=== PATIENT | male | born 1950 | race Caucasian/White ===

== ENCOUNTER 2016-12-13 08:48 | Inpatient (IN) | payer MEDICARE ==
[~2016-12-13] VITALS: Ht 182.9 cm; Wt 142.1 kg
[2016-12-13] MEDS ORDERED: IV NORMAL SALINE 500ML 500 ML IV ONE (09:00)
[2016-12-13 09:30] LABS: BASO # 0.1 x10^3/uL (0.0-0.2); BASO % 1 % (0-3); EOS # 0.2 x10^3/uL (0.0-0.7); EOS % 2 % (0-3); HEMATOCRIT 42.6 % (39.0-53.0); HEMOGLOBIN 14.5 g/dL (13.0-17.5); LYMPH # 1.2 x10^3/uL (1.0-4.8); LYMPH % 11 % (24-48); MEAN CORPUSCULAR HEMOGLOBIN 29 pg (25-35); MEAN CORPUSCULAR HGB CONC 34 g/dL (31-37); MEAN CORPUSCULAR VOLUME 85 fL (79-100); MONO # 0.7 x10^3/uL (0.0-1.1); MONO % 7 % (0-9); NEUT # 8.8 x10^3uL (1.8-7.7); NEUT % 79 % (31-73); PLATELET COUNT 404 x10^3/uL (140-400); RED CELL DISTRIBUTION WIDTH 13.1 % (11.5-14.5); WHITE BLOOD COUNT 11.1 x10^3/uL (4.0-11.0)
[2016-12-13 09:42] LABS: ALBUMIN 3.6 g/dL (3.4-5.0); CREATININE 0.9 mg/dL (0.7-1.3); GFR 84.2; POTASSIUM 3.5 mmol/L (3.5-5.1); TOTAL BILIRUBIN 0.4 mg/dL (0.2-1.0); TOTAL PROTEIN 7.3 g/dL (6.4-8.2)
--- NOTE | 2016-12-13 09:43 | RAD ---
Examination: 2 views of the chest. History: History of cough, fever Comparison: 04/03/2011 Findings: The cardiomediastinal silhouette grossly appears unremarkable. Mild patchy left lung base airspace opacities likely atelectasis or infiltrates. Impression: 1. Patchy left lung base airspace opacities likely atelectasis or pneumonia. Follow-up to resolution.
[2016-12-13 09:44] LABS: INFLUENZA A PATIENT NEGATIVE (NEGATIVE); INFLUENZA B PATIENT NEGATIVE (NEGATIVE)
[2016-12-13] MEDS ORDERED: ONDANSETRON PF 4 MG/2 ML VIAL. IV PRN (10:15)
[2016-12-13] MEDS ORDERED: AZITHROMYCIN 500 MG in IV NORMAL SALINE 250ML 250 ML IV ONE (10:15)
[2016-12-13] MEDS ORDERED: cefTRIAXone SODIUM 1 GM VIAL IV ONE (10:23)
[2016-12-13] MEDS ORDERED: IV NORMAL SALINE 50ML 50 ML ONE (10:23)
[2016-12-13] MEDS ORDERED: IPRATRPIUM/ALBUTEROL 0.5/2.5MG 3 ML NEBU. ONE (10:30)
--- NOTE | 2016-12-13 10:42 | PHYS DOC ---
Past History Past Medical History: Depression, Hypertension Alcohol Use: None Drug Use: None Adult General Chief Complaint Chief Complaint: COUGH HPI HPI Patient is a 66 year old male who presents with cough & body aches. The patient reports 6 day history of symptoms with deep, dry cough, subjective fevers, body aches, nausea. He denies headache, nasal congestion/rhinorrhea, sore throat, chest pain, shortness of breath, abdominal pain, vomiting, diarrhea , dysuria. History of hypertension & he has been treated for pneumonia in the past. Nonsmoker. Doesn't remember the name of his PCP. Review of Systems Review of Systems Constitutional: Reports fever Eyes: Denies change in visual acuity HENT: Denies nasal congestion or sore throat Respiratory: Reports cough, denies shortness of breath Cardiovascular: Denies chest pain or edema GI: Reports nausea. Denies abdominal pain, vomiting, or diarrhea : Denies dysuria or hematuria Musculoskeletal: Denies back pain or joint pain Integument: Denies rash or skin lesions Neurologic: Denies headache, focal weakness or sensory changes Current Medications Current Medications Current Medications Medications (Trade) Dose Ordered Sig/Yeni Start Time Stop Time Status Last Admin Dose Admin Albuterol/ Ipratropium (Duoneb) 3 ml STK-MED ONCE 12/13/16 10:30 12/13/16 10:31 DC Azithromycin 500 mg/Sodium Chloride 250 ml @ 250 mls/hr 1X ONCE 12/13/16 10:15 12/13/16 11:14 Ceftriaxone Sodium 1 gm/ Sodium Chloride 50 ml @ 100 mls/hr 1X ONCE 12/13/16 10:15 12/13/16 10:44 12/13/16 10:28 100 MLS/HR Ceftriaxone Sodium (Rocephin) 1 gm STK-MED ONCE 12/13/16 10:23 12/13/16 10:24 DC Ondansetron HCl (Zofran) 4 mg PRN Q4HRS PRN 12/13/16 10:15 12/14/16 10:14 Sodium Chloride 50 ml @ As Directed STK-MED ONCE 12/13/16 10:23 12/13/16 10:24 DC Allergies Allergies Allergies Coded Allergies Type Severity Reaction Last Updated Verified No Known Drug Allergies 12/13/16 No Physical Exam Physical Exam Constitutional: obese, no acute distress, non-toxic appearance. HENT: Normocephalic, atraumatic, bilateral external ears normal, oropharynx moist, posterior oropharynx no tonsillar enlargement/exudate, nose normal. Eyes: conjunctiva normal, no discharge. Neck: supple, no stridor. no meningismus Cardiovascular: tachycardic 105 regular, no murmurs, no edema. Lungs & Thorax: LCTAB, no wheezing, no respiratory distress. diminished in bases bilaterally. Abdomen: soft, nontender, nondistended. Skin: Warm, dry, no erythema, no rash. Back: No tenderness. Extremities: No tenderness, no edema. no calf tenderness or swelling. Neurologic: Alert and oriented X 3, no focal deficits noted. Psychologic: Affect normal, judgement normal, mood normal. Current Patient Data Vital Signs Vital Signs Date Time Temp Pulse Resp B/P (MAP) Pulse Ox O2 Delivery O2 Flow Rate FiO2 12/13/16 09:15 97.7 111 18 93 Room Air Lab Results Laboratory Tests Test 12/13/16 09:10 12/13/16 09:15 Influenza Type A (Rapid) Negative (NEGATIVE) Influenza Type B (Rapid) Negative (NEGATIVE) White Blood Count 11.1 x10^3/uL (4.0-11.0) H Red Blood Count 5.00 x10^6/uL (4.30-5.70) Hemoglobin 14.5 g/dL (13.0-17.5) Hematocrit 42.6 % (39.0-53.0) Mean Corpuscular Volume 85 fL (79-100) Mean Corpuscular Hemoglobin 29 pg (25-35) Mean Corpuscular Hemoglobin Concent 34 g/dL (31-37) Red Cell Distribution Width 13.1 % (11.5-14.5) Platelet Count 404 x10^3/uL (140-400) H Neutrophils (%) (Auto) 79 % (31-73) H Lymphocytes (%) (Auto) 11 % (24-48) L Monocytes (%) (Auto) 7 % (0-9) Eosinophils (%) (Auto) 2 % (0-3) Basophils (%) (Auto) 1 % (0-3) Neutrophils # (Auto) 8.8 x10^3uL (1.8-7.7) H Lymphocytes # (Auto) 1.2 x10^3/uL (1.0-4.8) Monocytes # (Auto) 0.7 x10^3/uL (0.0-1.1) Eosinophils # (Auto) 0.2 x10^3/uL (0.0-0.7) Basophils # (Auto) 0.1 x10^3/uL (0.0-0.2) Sodium Level 125 mmol/L (136-145) L Potassium Level 3.5 mmol/L (3.5-5.1) Chloride Level 89 mmol/L (98-107) L Carbon Dioxide Level 28 mmol/L (21-32) Anion Gap 8 (6-14) Blood Urea Nitrogen 8 mg/dL (8-26) Creatinine 0.9 mg/dL (0.7-1.3) Estimated GFR (Cockcroft-Gault) 84.2 BUN/Creatinine Ratio 9 (6-20) Glucose Level 148 mg/dL (70-99) H Calcium Level 9.0 mg/dL (8.5-10.1) Total Bilirubin 0.4 mg/dL (0.2-1.0) Aspartate Amino Transferase (AST) 20 U/L (15-37) Alanine Aminotransferase (ALT) 23 U/L (16-63) Alkaline Phosphatase 68 U/L (46-116) Total Protein 7.3 g/dL (6.4-8.2) Albumin 3.6 g/dL (3.4-5.0) Albumin/Globulin Ratio 1.0 (1.0-1.7) EKG EKG [] Radiology/Procedures Radiology/Procedures PROCEDURE: CHEST PA & LATERAL Examination: 2 views of the chest. History: History of cough, fever Comparison: 04/03/2011 Findings: The cardiomediastinal silhouette grossly appears unremarkable. Mild patchy left lung base airspace opacities likely atelectasis or infiltrates. Impression: 1. Patchy left lung base airspace opacities likely atelectasis or pneumonia. Follow-up to resolution. DICTATED AND SIGNED BY: JOSEMANUEL SINGH MD DATE: 12/13/16 0940[] Course & Med Decision Making Course & Med Decision Making Pertinent Labs and Imaging studies reviewed. (See chart for details) The patient presents with cough & body aches. Afebrile here, mildly tachycardic upon arrival with normal blood pressure. Lungs clear, CXR shows infiltrate consistent with pneumonia in light of clinical condition. At rest, oxygen saturation dropping to 88-89% on room air, placed on 2L by nasal cannula. Heart rate improved to 80s after 500 mL fluid bolus. WBC mildly elevated at 11, hyponatremia with sodium of 125. Recommended admission to the hospital, & the patient agrees with plan of care. Discussed with Dr. Finney who agrees to accept for admission to inpatient status. Will give rocephin & azithromycin for community acquired pneumonia, patient does not meet criteria for SIRS/sepsis. He is admitted in stable condition. I have assessed this patient clinically and believe that their condition requires an admission to the hospital. After consulting the admitting physician about this case, they have asked that I admit this patient to their service as an inpatient based on the clinical presentation and my impression. [] Dragon Disclaimer Dragon Disclaimer This chart was dictated in whole or in part using Voice Recognition software in a busy, high-work load, and often noisy Emergency Department environment. It may contain unintended and wholly unrecognized errors or omissions. Departure Departure: Impression: Primary Impression: Community acquired bacterial pneumonia Additional Impressions: Hypoxia Hyponatremia Disposition: ADMITTED INPATIENT Admitting Physician: Susan Finney Condition: STABLE Referrals: PCP,UNKNOWN (PCP) Problem Qualifiers ARIES RAMOS MD Dec 13, 2016 10:42
[2016-12-13] MEDS: IPRATRPIUM/ALBUTEROL 0.5/2.5MG 3 ML NEBU. NEB SCH ×3 (10:46→21:29)
[2016-12-13] MEDS ORDERED: ACETAMINOPHEN 325 MG TABLET PO PRN (11:00)
[2016-12-13] MEDS ORDERED: HYDROcodone/CHLORPHEN POLIS 5 ML SUS.ER.12H PO PRN (11:00)
[2016-12-13 11:09] VITALS: BP 141/95
[2016-12-13] MEDS ORDERED: AZITHROMYCIN 500 MG in IV NORMAL SALINE 250ML 250 ML IV SCH (12:00)
[2016-12-13] MEDS ORDERED: CARV3.122 PO (13:50)
[2016-12-13] MEDS ORDERED: LOSA1TAB22 PO (13:50)
[2016-12-13] MEDS ORDERED: TRIF5TAB PO (13:50)
[2016-12-13] MEDS ORDERED: SERT100T8 PO (13:50)
[2016-12-13] MEDS ORDERED: AMLO10TA2 PO (13:50)
[2016-12-13] MEDS ORDERED: LOSA50TA6 PO (13:50)
--- NOTE | 2016-12-13 13:51 | HP ---
ADMIT DATE: 12/13/2016 REASON FOR ADMISSION: Pneumonia. HISTORY OF PRESENT ILLNESS: This is a 66-year-old gentleman who has been sick since the with a sore throat, fever, hacking cough, aches and pains, and nausea. He tried to cough it out and then this got progressively worse. PAST MEDICAL HISTORY: He has hypertension and depression. He was hospitalized 2 years ago for vertigo. FAMILY HISTORY: Mother at 93, father at 80 and both had depression. ALLERGIES: None. MEDICATIONS: His home meds are not in yet, but he did say he takes Stelazine and Zoloft. PAST SURGICAL HISTORY: None. REVIEW OF SYSTEMS: Occasionally nauseated. He does snore. He no longer drives because he cannot calculate the distance between cars. 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 He is a nonsmoker, has a glass of wine now and then. OBJECTIVE: VITAL SIGNS: Blood pressure 141/95, pulse 102, temperature 98, O2 sat is 95% on 3 liters. Height 72 inches, weight 317 pounds, BMI is 43. GENERAL: A 66-year-old in no acute distress. HEENT: Hearing is normal. His eyes are clear. Nose is patent. Throat, large tongue relative to the posterior pharynx, no injection or exudate. NECK: Short and supple. LUNGS: Coarse breath sounds, but no wheezes. CARDIOVASCULAR: Regular rhythm and rate. ABDOMEN: Soft and nontender. EXTREMITIES: Without edema. LABORATORY DATA: CBC: His white blood cell count is 11.1, slight shift. Chemistry: Sodium is 125, chloride 89, glucose is 148. His influenza is negative. Chest x-ray: Left lung base infiltrate. ASSESSMENT: 1. Community-acquired pneumonia 2. Hyponatremia. 3. Sleep apnea suspect. 4. Morbid obesity. 5. Systemic inflammatory response syndrome. PLAN: IV antibiotics, IV fluids. Recommend sleep study as an outpatient. Monitor oxygen. JYARO GOLD DO DR: DESTINY/jermaine JOB#: [id number] / [id number]
[2016-12-13] MEDS: IV NORMAL SALINE 1,000ML 1,000 ML IV SCH ×2 (13:59→20:07)
[2016-12-13 14:07] LABS: BACTERIA,URINE 0 /HPF (0-FEW); BILIRUBIN,URINE NEG (NEG); CLARITY,URINE CLEAR; COLOR,URINE YELLOW; GLUCOSE,URINE NEG (NEG); NITRITE,URINE NEG (NEG); RBC,URINE 0 /HPF (0-2); UROBILINOGEN,URINE 0.2 mg/dL (0.2 mg/dL); WBC,URINE 0 /HPF (0-4)
[2016-12-13 14:30] VITALS: BP 118/82
[2016-12-13 19:25] VITALS: BP 131/79
[2016-12-13] MEDS: CARVEDILOL 3.125 MG TABLET PO SCH (20:03)
[2016-12-13] MEDS: TRIFLUOPERAZINE 1 MG PO SCH (20:03)
[2016-12-13] MEDS: ENOXAPARIN 40 MG/0.4 ML DISP.SYRIN. SQ SCH (20:04)
[2016-12-13 23:14] VITALS: BP 147/68
[2016-12-14 05:19] VITALS: BP 150/92
[2016-12-14] MEDS: IV NORMAL SALINE 1,000ML 1,000 ML IV SCH (05:24)
[2016-12-14 07:04] LABS: BASO % 0 % (0-3); EOS # 0.2 x10^3/uL (0.0-0.7); EOS % 2 % (0-3); HEMATOCRIT 41.3 % (39.0-53.0); LYMPH # 1.5 x10^3/uL (1.0-4.8); LYMPH % 19 % (24-48); MEAN CORPUSCULAR HEMOGLOBIN 29 pg (25-35); MEAN CORPUSCULAR HGB CONC 34 g/dL (31-37); MEAN CORPUSCULAR VOLUME 86 fL (79-100); MONO # 0.7 x10^3/uL (0.0-1.1); MONO % 9 % (0-9); NEUT # 5.4 x10^3uL (1.8-7.7); NEUT % 69 % (31-73); PLATELET COUNT 395 x10^3/uL (140-400); RED CELL DISTRIBUTION WIDTH 13.2 % (11.5-14.5); WHITE BLOOD COUNT 7.9 x10^3/uL (4.0-11.0)
[2016-12-14 07:17] LABS: CALCIUM 8.8 mg/dL (8.5-10.1); CREATININE 0.8 mg/dL (0.7-1.3); GFR 96.4; POTASSIUM 3.9 mmol/L (3.5-5.1)
[2016-12-14] MEDS: IPRATRPIUM/ALBUTEROL 0.5/2.5MG 3 ML NEBU. NEB SCH (08:00)
[2016-12-14] MEDS: CARVEDILOL 3.125 MG TABLET PO SCH ×2 (08:40→20:55)
[2016-12-14] MEDS: AZITHROMYCIN 250 MG TABLET. PO SCH (08:40)
[2016-12-14] MEDS: SERTRALINE 100 MG TABLET. PO SCH (08:40)
[2016-12-14] MEDS: amLODIPine BESYLATE 10 MG TABLET PO SCH (08:41)
[2016-12-14] MEDS: LOSARTAN 50 MG TABLET. PO SCH (08:41)
[2016-12-14] MEDS: TRIFLUOPERAZINE 1 MG PO SCH ×2 (08:43→20:56)
[2016-12-14] MEDS ORDERED: PNEUMOC CONJ VACC 23-VALENT 0.5 ML VIAL. VAX IM ONE (09:00)
[2016-12-14] MEDS ORDERED: FLU VACC QS2017-18 (36MOS+)/PF 0.5 ML SYRINGE. VAX IM ONE (09:00)
[2016-12-14 10:35] VITALS: BP 149/80
[2016-12-14 15:23] VITALS: BP 161/77
[2016-12-14] MEDS ORDERED: IPRATRPIUM/ALBUTEROL 0.5/2.5MG 3 ML NEBU. NEB PRN (19:15)
[2016-12-14 19:26] VITALS: BP 133/87
[2016-12-14] MEDS: LACTOBACILLUS ACIDOPH & BULGAR 1 TABLET. PO SCH (20:55)
[2016-12-14] MEDS: ENOXAPARIN 40 MG/0.4 ML DISP.SYRIN. SQ SCH (20:55)
[2016-12-14 22:31] VITALS: BP 166/88
--- NOTE | 2016-12-14 23:03 | PN ---
DATE: 12/14/2016 CURRENT PROBLEMS: 1. Acute hypoxic respiratory failure 2. Pneumonia. 3. Morbid obesity. 4. Sleep apnea suspect. 5. SIRS. 6. Depression. 7. Hypertension. NARRATIVE: A 66-year-old gentleman who has been sick at least a week and was found to have pneumonia and hypoxia and was admitted. He is still requiring oxygen, but is feeling a lot better. He still required oxygen; yesterday evening, it was 91% on 3 liters. OBJECTIVE: VITAL SIGNS: 150/92, pulse 95, temperature 97.3. GENERAL: A 66-year-old, in no acute distress. HEENT: His tongue was moist. NECK: Supple. LUNGS: Still a few coarse breath sounds, but essentially clear. CARDIOVASCULAR: Regular rhythm and rate with a 2/6 systolic murmur. ABDOMEN: Soft and nontender. EXTREMITIES: Without edema. PLAN: Because of the murmur, we get an echocardiogram tomorrow. A 6-minute walk. Continue with IV antibiotics and probably could be discharged tomorrow. He monitor his blood pressure. He may benefit as his blood pressures were fine yesterday. JAYRO GOLD DO DR: DESTINY/jermaine JOB#: [id number] / [id number]
[2016-12-15 05:54] VITALS: BP 149/96
[2016-12-15 06:28] LABS: BASO % 0 % (0-3); EOS # 0.2 x10^3/uL (0.0-0.7); EOS % 1 % (0-3); HEMATOCRIT 43.4 % (39.0-53.0); HEMOGLOBIN 14.5 g/dL (13.0-17.5); LYMPH # 1.8 x10^3/uL (1.0-4.8); LYMPH % 14 % (24-48); MEAN CORPUSCULAR HEMOGLOBIN 29 pg (25-35); MEAN CORPUSCULAR HGB CONC 34 g/dL (31-37); MEAN CORPUSCULAR VOLUME 86 fL (79-100); MONO # 0.9 x10^3/uL (0.0-1.1); MONO % 7 % (0-9); NEUT # 10.1 x10^3uL (1.8-7.7); NEUT % 77 % (31-73); PLATELET COUNT 407 x10^3/uL (140-400); RED BLOOD COUNT 5.03 x10^6/uL (4.30-5.70); RED CELL DISTRIBUTION WIDTH 12.8 % (11.5-14.5)
[2016-12-15 06:30] LABS: ALBUMIN 3.4 g/dL (3.4-5.0); ALBUMIN/GLOBULIN RATIO 0.9 (1.0-1.7); CALCIUM 9.1 mg/dL (8.5-10.1); CREATININE 0.9 mg/dL (0.7-1.3); GFR 84.2; POTASSIUM 4.2 mmol/L (3.5-5.1); TOTAL BILIRUBIN 0.4 mg/dL (0.2-1.0); TOTAL PROTEIN 7.3 g/dL (6.4-8.2)
[2016-12-15] MEDS: LACTOBACILLUS ACIDOPH & BULGAR 1 TABLET. PO SCH ×2 (08:58→20:44)
[2016-12-15] MEDS: LOSARTAN 50 MG TABLET. PO SCH (08:59)
[2016-12-15] MEDS: AZITHROMYCIN 250 MG TABLET. PO SCH (08:59)
[2016-12-15] MEDS: CARVEDILOL 3.125 MG TABLET PO SCH ×2 (08:59→20:45)
[2016-12-15] MEDS: SERTRALINE 100 MG TABLET. PO SCH (08:59)
[2016-12-15] MEDS: amLODIPine BESYLATE 10 MG TABLET PO SCH (08:59)
[2016-12-15] MEDS: TRIFLUOPERAZINE 1 MG PO SCH (09:00)
[2016-12-15 10:35] VITALS: BP 139/74
--- NOTE | 2016-12-15 10:53 | RAD ---
2 views of the Chest 12/15/2016 10:00 AM Indication: FOLLOW UP PNEUMONIA Comparison: Chest radiograph December 13, 2016 Findings: Elevation of the right hemidiaphragm again noted. There is interval improvement in but persistent patchy infiltrate in left lung base. Possible mild right basilar atelectasis is seen. No pneumothorax is identified. No pleural effusion is seen. Heart size is within normal limits. Bony thorax is grossly intact. Impression: Possible interval mild improvement in, but persistent mild left basilar patchy infiltrate
[2016-12-15 15:11] VITALS: BP 140/85
--- NOTE | 2016-12-15 16:50 | PDOC2 ---
CONSULT Date of Admission DATE: 12/15/16 TIME: 16:36 Reason for Consult: abnormal rhythm Problem List Problems Medical Problems: (1) Community acquired bacterial pneumonia Status: Acute (2) Hyponatremia Status: Acute (3) Hypoxia Status: Acute History of Present Illness Mr Carrillo is a 66 year old male with history of hypertension who was admitted on 12/13/16 with pneumonia. He reports dyspnea and cough for several days with associated sore throat, fever and body aches. He was finally convinced by his friend to come to hospital where he was found to have pneumonia. He has been treated with antibiotics, antitussives and nebulizers since that time. Today his telemetry was noted to be suspicious for heart block and flutter so consult was called. He reports feeling much better that at admission. He does report intermittent chest discomfort with exertion that has been going on for at least 1 year. He reports dyspnea on exertion with walking more than 2 blocks and 1 flight of stairs over the last several years as well. He denies congestive symptoms. He denies palpitations. He reports lightheadedness that occurs with coughing and his friend who is at the bedside reports that he has had at least 1 syncopal episode. He denies edema. He reports his functional capacity at 2 blocks. Past Medical History hypertension, depression, vertigo Past Surgical History appendectomy Family History heart disease in his mother and prostate cancer in a brother Social History He denies smoking, ETOH or illicit drug use. Current Medications Current Medications Sodium Chloride 500 ml @ 0 mls/hr 1X ONCE IV Last administered on 12/13/16 09 :31; Start 12/13/16 at 09:00; Stop 12/13/16 at 09:26; Status DC Ceftriaxone Sodium 1 gm/ Sodium Chloride 50 ml @ 100 mls/hr 1X ONCE IV Last administered on 12/13/16 10:28; Start 12/13/16 at 10:15; Stop 12/13/16 at 10:44 ; Status DC Azithromycin 500 mg/Sodium Chloride 250 ml @ 250 mls/hr 1X ONCE IV ; Start at 10:15; Stop 12/13/16 at 11:14; Status DC Ondansetron HCl (Zofran) 4 mg PRN Q4HRS PRN IV NAUSEA/VOMITING; Start 12/13/16 at 10:15; Stop 12/14/16 at 10:14; Status DC Albuterol/ Ipratropium (Duoneb) 3 ml RTQID NEB Last administered on 12/13/16 21:29; Start 12/13/16 at 12:00; Stop 12/14/16 at 11:59; Status DC Sodium Chloride 50 ml @ As Directed STK-MED ONCE .ROUTE ; Start 12/13/16 at 10: 23; Stop 12/13/16 at 10:24; Status DC Ceftriaxone Sodium (Rocephin) 1 gm STK-MED ONCE IV ; Start 12/13/16 at 10:23; Stop 12/13/16 at 10:24; Status DC Albuterol/ Ipratropium (Duoneb) 3 ml STK-MED ONCE .ROUTE ; Start 12/13/16 at 10: 30; Stop 12/13/16 at 10:31; Status DC Sodium Chloride 1,000 ml @ 100 mls/hr Q10H IV Last administered on 12/13/16 13:59; Start 12/13/16 at 10:45; Stop 12/14/16 at 07:55; Status DC Ceftriaxone Sodium 1 gm/ Sodium Chloride 50 ml @ 100 mls/hr Q24H IV Last administered on 12/14/16 12:29; Start 12/13/16 at 11:00 Azithromycin 500 mg/Sodium Chloride 250 ml @ 250 mls/hr Q24H IV Last administered on 12/13/16 14:00; Start 12/13/16 at 12:00; Stop 12/13/16 at 16:00 ; Status DC Chlorphenir/ Hydrocodone Polistirex (Tussionex) 5 ml PRN Q12HR PRN PO COUGH; Start 12/13/16 at 11:00 Acetaminophen (Tylenol) 650 mg Q6HRS PRN PO FEVER > 100.5'F; Start 12/13/16 at 11:00 Amlodipine Besylate (Norvasc) 10 mg DAILY PO Last administered on 12/15/16 08: 59; Start 12/14/16 at 09:00 Carvedilol (Coreg) 3.125 mg BID PO Last administered on 12/15/16 08:59; Start 12/13/16 at 21:00 Losartan Potassium (Cozaar) 50 mg DAILY PO Last administered on 12/15/16 08:59 ; Start 12/14/16 at 09:00 Sertraline HCl (Zoloft) 100 mg DAILY PO Last administered on 12/15/16 08:59; Start 12/14/16 at 09:00 Trifluoperazine HCl (Stelazine) 5 mg BID PO Last administered on 12/15/16 09: 00; Start 12/13/16 at 21:00 Influenza Virus Vaccine Quadrival (Fluarix Quad [id number] Syringe) 0.5 ml 1X ONCE VAX IM Last administered on 12/14/16 08:44; Start 12/14/16 at 09:00; Stop 12/14/16 at 09:01; Status DC Pneumococcal Polyvalent Vaccine (Pneumovax 23) 0.5 ml 1X ONCE VAX IM Last administered on 12/14/16 08:44; Start 12/14/16 at 09:00; Stop 12/14/16 at 09:01 ; Status DC Azithromycin (Zithromax) 500 mg DAILY PO Last administered on 12/15/16 08:59; Start 12/14/16 at 09:00; Stop 12/15/16 at 09:01; Status DC Enoxaparin Sodium (Lovenox) 40 mg Q24H SQ Last administered on 12/14/16 20:55 ; Start 12/13/16 at 21:00 Lactobacillus Acidophilus (Bacid, [place]-Bid) 1 tab BID PO Last administered on 12/15/16 08:58; Start 12/14/16 at 21:00 Albuterol/ Ipratropium (Duoneb) 3 ml PRN QID PRN NEB soa; Start 12/14/16 at 19: 15 Active Scripts Active Reported Losartan Potassium 50 Mg Tablet 50 Mg PO DAILY Carvedilol 3.125 Mg Tablet 3.125 Mg PO BID Sertraline Hcl 100 Mg Tablet 100 Mg PO DAILY Losartan-Hctz 100-25 Mg Tab (Losartan/Hydrochlorothiazide) 1 Each Tablet 25 Mg PO DAILY Amlodipine Besylate 10 Mg Tablet 10 Mg PO DAILY Trifluoperazine Hcl 5 Mg Tablet 5 Mg PO BID Allergies: Coded Allergies: No Known Drug Allergies (Unverified , 12/13/16) Review of System as per HPI or negative General: Alert, Oriented X3, Cooperative, No acute distress HEENT: Atraumatic, EOMI Lungs: Other (coarse with decreased bases, no crackles, rhonchi or wheezing) Heart: Regular rate, Normal S1, Normal S2, Other (+systolic murmur) Abdomen: Normal bowel sounds, Soft, No tenderness Extremities: Normal pulses, Other (trace edema) Neuro: Normal speech, Strength at 5/5 X4 ext Psych/Mental Status: Mental status NL, Mood NL VITALS Vital Signs Date Time Temp Pulse Resp B/P (MAP) Pulse Ox O2 Delivery O2 Flow Rate FiO2 12/15/16 15:11 98.7 93 20 140/85 (103) 93 Room Air 12/15/16 10:35 3.0 Labs Laboratory Tests Test 12/14/16 06:23 12/15/16 05:49 White Blood Count 7.9 x10^3/uL (4.0-11.0) 13.0 x10^3/uL (4.0-11.0) Red Blood Count 4.80 x10^6/uL (4.30-5.70) 5.03 x10^6/uL (4.30-5.70) Hemoglobin 14.0 g/dL (13.0-17.5) 14.5 g/dL (13.0-17.5) Hematocrit 41.3 % (39.0-53.0) 43.4 % (39.0-53.0) Mean Corpuscular Volume 86 fL (79-100) 86 fL (79-100) Mean Corpuscular Hemoglobin 29 pg (25-35) 29 pg (25-35) Mean Corpuscular Hemoglobin Concent 34 g/dL (31-37) 34 g/dL (31-37) Red Cell Distribution Width 13.2 % (11.5-14.5) 12.8 % (11.5-14.5) Platelet Count 395 x10^3/uL (140-400) 407 x10^3/uL (140-400) Neutrophils (%) (Auto) 69 % (31-73) 77 % (31-73) Lymphocytes (%) (Auto) 19 % (24-48) 14 % (24-48) Monocytes (%) (Auto) 9 % (0-9) 7 % (0-9) Eosinophils (%) (Auto) 2 % (0-3) 1 % (0-3) Basophils (%) (Auto) 0 % (0-3) 0 % (0-3) Neutrophils # (Auto) 5.4 x10^3uL (1.8-7.7) 10.1 x10^3uL (1.8-7.7) Lymphocytes # (Auto) 1.5 x10^3/uL (1.0-4.8) 1.8 x10^3/uL (1.0-4.8) Monocytes # (Auto) 0.7 x10^3/uL (0.0-1.1) 0.9 x10^3/uL (0.0-1.1) Eosinophils # (Auto) 0.2 x10^3/uL (0.0-0.7) 0.2 x10^3/uL (0.0-0.7) Basophils # (Auto) 0.0 x10^3/uL (0.0-0.2) 0.0 x10^3/uL (0.0-0.2) Sodium Level 135 mmol/L (136-145) 134 mmol/L (136-145) Potassium Level 3.9 mmol/L (3.5-5.1) 4.2 mmol/L (3.5-5.1) Chloride Level 98 mmol/L (98-107) 98 mmol/L (98-107) Carbon Dioxide Level 30 mmol/L (21-32) 31 mmol/L (21-32) Anion Gap 7 (6-14) 5 (6-14) Blood Urea Nitrogen 8 mg/dL (8-26) 10 mg/dL (8-26) Creatinine 0.8 mg/dL (0.7-1.3) 0.9 mg/dL (0.7-1.3) Estimated GFR (Cockcroft-Gault) 96.4 84.2 Glucose Level 135 mg/dL (70-99) 130 mg/dL (70-99) Calcium Level 8.8 mg/dL (8.5-10.1) 9.1 mg/dL (8.5-10.1) BUN/Creatinine Ratio 11 (6-20) Total Bilirubin 0.4 mg/dL (0.2-1.0) Aspartate Amino Transf (AST/SGOT) 14 U/L (15-37) Alanine Aminotransferase (ALT/SGPT) 23 U/L (16-63) Alkaline Phosphatase 61 U/L (46-116) Total Protein 7.3 g/dL (6.4-8.2) Albumin 3.4 g/dL (3.4-5.0) Albumin/Globulin Ratio 0.9 (1.0-1.7) Images EKG - Sinus rhythm no acute abnormalities. CXR - persistent left basilar infiltrate Tele - sinus rhythm with artifact Assessment/Plan 1. arrhythmia - on review of the telemetry strips there is significant artifact in several of the leads but lead III consistently reveals sinus rhythm , with occasional PVCs. No atrial flutter or heart block noted. 2. chest pain - will check echo and suggest MPI when pneumonia is resolved. Check lipids. 3. hypertension - continue current antihypertensives 4. CAP - mgmt per IM 5. prob sleep apnea - agree with need for op sleep study 6. obesity - weight reduction encouraged. Problems: MT GIANG MUSIC TYPOGRAPHER Dec 15, 2016 16:49
--- NOTE | 2016-12-15 17:24 | EKG ---
[address] [address] Test Date: 2016-12-15 Test Time: 15:12:57 Pat Name: DAMEON LAGOS Department: Room: 113 A Gender: M Refuse Laborer: : [id number] Requested By: JESSE PRESTON Order Number: [id number] Reading MD: Measurements Intervals Winn Rate: 85 P: 20 NE: 198 QRS: 67 QRSD: 86 T: 123 QT: 358 QTc: 426 Interpretive Statements SINUS RHYTHM T ABNORMALITY IN HIGH LATERAL LEADS ABNORMAL ECG RI6.01 Unconfirmed report No previous ECG available for comparison
[2016-12-15 19:49] VITALS: BP 144/84
[2016-12-15] MEDS: TRIFLUOPERAZINE 5 MG PO SCH (20:44)
[2016-12-15] MEDS: ENOXAPARIN 40 MG/0.4 ML DISP.SYRIN. SQ SCH (20:45)
[2016-12-15 23:52] VITALS: BP 146/85
--- NOTE | 2016-12-16 03:45 | PN ---
DATE: 12/15/2016 SUBJECTIVE: The patient is a 66-year-old male patient, who was admitted on 12/13/2016 with a complaint of sore throat, fever, hacking cough, aches and pains and nausea and apparently he was evaluated in the Emergency Room, has had a chest x-ray, which showed that he has mild patchy left lung base airspace opacities likely atelectasis or infiltrate. He was admitted and was started on IV antibiotic in the form of Rocephin. He was doing very well today. He was on telemetry. He was noted to have what looks like either AV dissociation or high-grade heart block, although the patient himself denied any complaint. OBJECTIVE: GENERAL: When I examined him, he was sitting comfortably in his chair in no apparent respiratory distress, slightly pale, but no jaundice, cyanosis or thyromegaly. No jugular venous distention. No limb edema. VITAL SIGNS: His heart rate was 95, blood pressure was 139/74, temperature was 98.2, respiratory rate was 20 and oxygen saturation was 97% on 3 liters of oxygen. HEAD, EYES, EARS, NOSE AND THROAT: Showed normocephalic, atraumatic. NECK: Supple. HEART: Showed normal first and second heart sounds with no gallop, rub or murmur. CHEST: Clear to auscultation. No crepitation or rhonchi. ABDOMEN: Distended, soft, nontender. NEUROLOGIC: He is awake, alert, responding appropriately. Cranial nerves intact. He moves extremities without difficulty, ambulates without assistance or assistive devices. His intake over the last 24 hours was 2370, output was 1600. LABORATORY DATA: As of this morning showed a white cell count of 13,000, hemoglobin 14.5, hematocrit 43, MCV 86 and platelet count 407,000. Serum sodium 134, potassium 4.2, chloride 98, bicarbonate 31, anion gap of 5, BUN 10, creatinine 0.9, estimated GFR was 84 mL per minute. Her glucose was 130, calcium was 9.1. Total bilirubin, AST, ALT, alkaline phosphatase were normal. Total protein was 7.3, albumin 3.4. ASSESSMENT: 1. Community-acquired pneumonia. 2. Hyponatremia, resolving. 3. Morbid obesity. 4. Obstructive sleep apnea. 5. Systemic inflammatory response syndrome. 5. Probably sick sinus syndrome with multiple episodes of atrial tachycardia versus high-grade heart block versus AV dissociation. PLAN: My plan is to continue with IV antibiotic. We will consult the cardiology team and decide on further management accordingly. JESSE PRESTON MD DR: JORDYN/jermaine JOB#: [id number] / [id number]
[2016-12-16 06:01] VITALS: BP 149/78
--- NOTE | 2016-12-16 07:45 | CARD ---
APPROVED REPORT EXAM: Two-dimensional and M-mode echocardiogram with Doppler and color Doppler. Other Information Quality : FairHR: 97bpm Rhythm : NSR INDICATION Murmur 2D DIMENSIONS Left Atrium(2D)4.2 (1.6-4.0cm)IVSd1.1 (0.7-1.1cm) Aortic Root(2D)3.1 (2.0-3.7cm)LVDd4.7 (3.9-5.9cm) LVOT Diameter2.2 (1.8-2.4cm)PWd1.1 (0.7-1.1cm) LVDs3.4 (2.5-4.0cm)FS (%) 27.3 % SV53.8 mlLVEF(%)53.1 (>50%) Aortic Valve AoV Peak Jaden.201.7cm/sAoV VTI36.9cm AO Peak GR.16.3mmHgLVOT Peak Jaden.126.7cm/s LVOT VTI 25.98cmAO Mean GR.11mmHg SANDRA (VMAX)2.15vb4KQK (VTI)2.57cm2 Mitral Valve MV E Zdmgjtxu615.1cm/sMV DECEL SDQL795xm MV A Noviqkmy290.5cm/sE/A Ratio0.9 MV A Thjkuaie06cg TDI Lateral E' P. V9.00cm/sMedial E' P. V10.00cm/s E/Lateral E'12.8E/Medial E'11.5 Pulmonary Valve PV Peak Pxmbxnrg690.4cm/sPV Peak Grad.8mmHg Tricuspid Valve TR P. Frzgwxjw056fa/sRAP HRKTVOKM1obCx TR Peak Gr.60fuJvRINF64ogHs LEFT VENTRICLE The left ventricle is normal size. There is normal left ventricular wall thickness. The left ventricu lar systolic function is normal. The ejection fraction is estimated at 55-60%. There is normal LV seg mental wall motion. Transmitral Doppler flow pattern is Grade I-abnormal relaxation pattern. No left ventricle thrombus noted on this study. There is no ventricular septal defect visualized. There is no left ventricular aneurysm. There is no mass noted in the left ventricle. RIGHT VENTRICLE The right ventricle is normal size. There is normal right ventricular wall thickness. The right ventr icular systolic function is normal. ATRIA The left atrium is mildly dilated. The right atrium size is normal. The interatrial septum is intact with no evidence for an atrial septal defect or patent foramen ovale as noted on 2-D or Doppler imagi ng. AORTIC VALVE The aortic valve is normal in structure and function. Doppler and Color Flow revealed no significant aortic regurgitation. There is no significant aortic valvular stenosis. There is no aortic valvular v egetation. MITRAL VALVE The mitral valve is normal in structure and function. There is no evidence of mitral valve prolapse. There is no mitral valve stenosis. Doppler and Color Flow revealed no mitral valve regurgitation note d. TRICUSPID VALVE The tricuspid valve is normal in structure and function. Doppler and Color Flow revealed mild tricusp id valve regurgitation noted. There is no tricuspid valve prolapse or vegetation. There is no tricusp id valve stenosis. PULMONIC VALVE The pulmonary valve is normal in structure and function. Doppler and Color Flow revealed no pulmonic valvular regurgitation. There is no pulmonic valvular stenosis. GREAT VESSELS The aortic root is normal in size. The IVC is normal in size and collapses >50% with inspiration. PERICARDIAL EFFUSION There is no pleural effusion. There is no evidence of significant pericardial effusion. Critical Notification Critical Value: No <Conclusion> Technically very difficult study. The left ventricular systolic function is normal. The ejection fraction is estimated at 55-60%. There is normal LV segmental wall motion. The left atrium is mildly dilated. There is no evidence of significant pericardial effusion.
[2016-12-16] MEDS ORDERED: ASPIRIN ENTERIC COATED 81 MG TABLET.DR. PO SCH (08:00)
[2016-12-16] MEDS: CARVEDILOL 3.125 MG TABLET PO SCH (08:03)
[2016-12-16] MEDS: LACTOBACILLUS ACIDOPH & BULGAR 1 TABLET. PO SCH (08:03)
[2016-12-16] MEDS: TRIFLUOPERAZINE 5 MG PO SCH (08:03)
[2016-12-16] MEDS: SERTRALINE 100 MG TABLET. PO SCH (08:03)
[2016-12-16] MEDS: LOSARTAN 50 MG TABLET. PO SCH (08:03)
[2016-12-16] MEDS: amLODIPine BESYLATE 10 MG TABLET PO SCH (08:04)
--- NOTE | 2016-12-16 09:09 | PDOC ---
MT GIANG APRN 12/16/16 0909: PROGRESS NOTES Diagnosis Problem Problems Medical Problems: (1) Community acquired bacterial pneumonia Status: Acute (2) Hyponatremia Status: Acute (3) Hypoxia Status: Acute Assessment Problems Medical Problems: (1) Community acquired bacterial pneumonia Status: Acute (2) Hyponatremia Status: Acute (3) Hypoxia Status: Acute 1. arrhythmia - Sinus rhythm without arrhythmias. 2. chest pain - Echo reveals normal LV function and wall motion. Suggest outpatient MPI when respiratory issues are resolved. RF reduction, continue aspirin, add beta fela. Lipids pending, statin as indicated after review. 3. hypertension - continue current antihypertensives. add beta fela. 4. CAP - mgmt per IM 5. prob sleep apnea - suggest outpatient sleep study 6. obesity - weight reduction encouraged. Problems: Subjective resting quietly, no chest pain, breathing easy, no palpitations Objective Vital Signs Date Time Temp Pulse Resp B/P (MAP) Pulse Ox O2 Delivery O2 Flow Rate FiO2 12/16/16 08:04 90 149/78 12/16/16 06:01 98.2 18 92 Room Air 12/15/16 23:52 3.0 Intake and Output 12/17/16 07:00 Intake Total 240 ml Balance 240 ml Intake Oral 240 ml Abdomen: Normal bowel sounds, Soft Heart: Regular rate, Normal S1, Normal S2 Extremities: No cyanosis, Normal pulses General: Alert, Oriented X3, Cooperative Lungs: Other (decreased bases o/w clear) Neuro: Normal speech, Strength at 5/5 X4 ext Psych/Mental Status: Mental status NL, Mood NL Review of Relevant I have reviewed the following items ching (where applicable) has been applied. Labs Laboratory Tests Test 12/15/16 05:49 White Blood Count 13.0 x10^3/uL (4.0-11.0) Red Blood Count 5.03 x10^6/uL (4.30-5.70) Hemoglobin 14.5 g/dL (13.0-17.5) Hematocrit 43.4 % (39.0-53.0) Mean Corpuscular Volume 86 fL (79-100) Mean Corpuscular Hemoglobin 29 pg (25-35) Mean Corpuscular Hemoglobin Concent 34 g/dL (31-37) Red Cell Distribution Width 12.8 % (11.5-14.5) Platelet Count 407 x10^3/uL (140-400) Neutrophils (%) (Auto) 77 % (31-73) Lymphocytes (%) (Auto) 14 % (24-48) Monocytes (%) (Auto) 7 % (0-9) Eosinophils (%) (Auto) 1 % (0-3) Basophils (%) (Auto) 0 % (0-3) Neutrophils # (Auto) 10.1 x10^3uL (1.8-7.7) Lymphocytes # (Auto) 1.8 x10^3/uL (1.0-4.8) Monocytes # (Auto) 0.9 x10^3/uL (0.0-1.1) Eosinophils # (Auto) 0.2 x10^3/uL (0.0-0.7) Basophils # (Auto) 0.0 x10^3/uL (0.0-0.2) Sodium Level 134 mmol/L (136-145) Potassium Level 4.2 mmol/L (3.5-5.1) Chloride Level 98 mmol/L (98-107) Carbon Dioxide Level 31 mmol/L (21-32) Anion Gap 5 (6-14) Blood Urea Nitrogen 10 mg/dL (8-26) Creatinine 0.9 mg/dL (0.7-1.3) Estimated GFR (Cockcroft-Gault) 84.2 BUN/Creatinine Ratio 11 (6-20) Glucose Level 130 mg/dL (70-99) Calcium Level 9.1 mg/dL (8.5-10.1) Total Bilirubin 0.4 mg/dL (0.2-1.0) Aspartate Amino Transf (AST/SGOT) 14 U/L (15-37) Alanine Aminotransferase (ALT/SGPT) 23 U/L (16-63) Alkaline Phosphatase 61 U/L (46-116) Total Protein 7.3 g/dL (6.4-8.2) Albumin 3.4 g/dL (3.4-5.0) Albumin/Globulin Ratio 0.9 (1.0-1.7) Medications Current Medications Sodium Chloride 500 ml @ 0 mls/hr 1X ONCE IV Last administered on 12/13/16t 09 :31; Start 12/13/16 at 09:00; Stop 12/13/16 at 09:26; Status DC Ceftriaxone Sodium 1 gm/ Sodium Chloride 50 ml @ 100 mls/hr 1X ONCE IV Last administered on 12/13/16 10:28; Start 12/13/16 at 10:15; Stop 12/13/16 at 10:44 ; Status DC Azithromycin 500 mg/Sodium Chloride 250 ml @ 250 mls/hr 1X ONCE IV ; Start at 10:15; Stop 12/13/16 at 11:14; Status DC Ondansetron HCl (Zofran) 4 mg PRN Q4HRS PRN IV NAUSEA/VOMITING; Start 12/13/16 at 10:15; Stop 12/14/16 at 10:14; Status DC Albuterol/ Ipratropium (Duoneb) 3 ml RTQID NEB Last administered on 12/13/16 21:29; Start 12/13/16 at 12:00; Stop 12/14/16 at 11:59; Status DC Sodium Chloride 50 ml @ As Directed STK-MED ONCE .ROUTE ; Start 12/13/16 at 10: 23; Stop 12/13/16 at 10:24; Status DC Ceftriaxone Sodium (Rocephin) 1 gm STK-MED ONCE IV ; Start 12/13/16 at 10:23; Stop 12/13/16 at 10:24; Status DC Albuterol/ Ipratropium (Duoneb) 3 ml STK-MED ONCE .ROUTE ; Start 12/13/16 at 10: 30; Stop 12/13/16 at 10:31; Status DC Sodium Chloride 1,000 ml @ 100 mls/hr Q10H IV Last administered on 12/13/16 13:59; Start 12/13/16 at 10:45; Stop 12/14/16 at 07:55; Status DC Ceftriaxone Sodium 1 gm/ Sodium Chloride 50 ml @ 100 mls/hr Q24H IV Last administered on 12/15/16 20:46; Start 12/13/16 at 11:00 Azithromycin 500 mg/Sodium Chloride 250 ml @ 250 mls/hr Q24H IV Last administered on 12/13/16 14:00; Start 12/13/16 at 12:00; Stop 12/13/16 at 16:00 ; Status DC Chlorphenir/ Hydrocodone Polistirex (Tussionex) 5 ml PRN Q12HR PRN PO COUGH; Start 12/13/16 at 11:00 Acetaminophen (Tylenol) 650 mg Q6HRS PRN PO FEVER > 100.5'F; Start 12/13/16 at 11:00 Amlodipine Besylate (Norvasc) 10 mg DAILY PO Last administered on 12/16/16 08: 04; Start 12/14/16 at 09:00 Carvedilol (Coreg) 3.125 mg BID PO Last administered on 12/16/16 08:03; Start 12/13/16 at 21:00 Losartan Potassium (Cozaar) 50 mg DAILY PO Last administered on 12/16/16 08:03 ; Start 12/14/16 at 09:00 Sertraline HCl (Zoloft) 100 mg DAILY PO Last administered on 12/16/16 08:03; Start 12/14/16 at 09:00 Trifluoperazine HCl (Stelazine) 5 mg BID PO Last administered on 12/15/16 09: 00; Start 12/13/16 at 21:00; Stop 12/15/16 at 20:26; Status DC Influenza Virus Vaccine Quadrival (Fluarix Quad [id number] Syringe) 0.5 ml 1X ONCE VAX IM Last administered on 12/14/16 08:44; Start 12/14/16 at 09:00; Stop 12/14/16 at 09:01; Status DC Pneumococcal Polyvalent Vaccine (Pneumovax 23) 0.5 ml 1X ONCE VAX IM Last administered on 12/14/16 08:44; Start 12/14/16 at 09:00; Stop 12/14/16 at 09:01 ; Status DC Azithromycin (Zithromax) 500 mg DAILY PO Last administered on 12/15/16 08:59; Start 12/14/16 at 09:00; Stop 12/15/16 at 09:01; Status DC Enoxaparin Sodium (Lovenox) 40 mg Q24H SQ Last administered on 12/15/16 20:45 ; Start 12/13/16 at 21:00 Lactobacillus Acidophilus (Bacid, [place]-Bid) 1 tab BID PO Last administered on 12/16/16 08:03; Start 12/14/16 at 21:00 Albuterol/ Ipratropium (Duoneb) 3 ml PRN QID PRN NEB soa; Start 12/14/16 at 19: 15 Aspirin (Aspirin Enteric Coated) 81 mg DAILYWBKFT PO Last administered on 08:03; Start 12/16/16 at 08:00 Trifluoperazine HCl (Stelazine) 5 mg BID PO Last administered on 12/16/16 08: 03; Start 12/15/16 at 21:00 Active Scripts Active Reported Losartan Potassium 50 Mg Tablet 50 Mg PO DAILY Carvedilol 3.125 Mg Tablet 3.125 Mg PO BID Sertraline Hcl 100 Mg Tablet 100 Mg PO DAILY Losartan-Hctz 100-25 Mg Tab (Losartan/Hydrochlorothiazide) 1 Each Tablet 25 Mg PO DAILY Amlodipine Besylate 10 Mg Tablet 10 Mg PO DAILY Trifluoperazine Hcl 5 Mg Tablet 5 Mg PO BID Vitals/I & O Vital Sign - Last 24 Hours 12/15/16 12/15/16 12/15/16 12/15/16 10:35 15:11 19:49 20:00 Temp 98.2 98.7 98.4 Pulse 95 93 94 Resp 20 20 18 B/P (MAP) 139/74 (95) 140/85 (103) 144/84 (104) Pulse Ox 97 93 94 O2 Delivery Nasal Cannula Room Air Room Air Room Air O2 Flow Rate 3.0 12/15/16 12/15/16 12/16/16 12/16/16 20:45 23:52 06:01 08:03 Temp 98.2 Pulse 94 90 90 90 Resp 19 18 B/P (MAP) 144/84 146/85 (105) 149/78 (101) 149/78 Pulse Ox 95 92 O2 Delivery Nasal Cannula Room Air O2 Flow Rate 3.0 12/16/16 12/16/16 08:03 08:04 Pulse 90 90 B/P (MAP) 149/78 149/78 Intake and Output 12/16/16 12/16/16 12/17/16 15:00 23:00 07:00 Intake Total 240 ml Balance 240 ml WATSON DE LA CRUZ MD 12/16/16 1456: PROGRESS NOTES Assessment Patient seen and examined. Agree with AIRFRAME TECHNICIAN's assessment and plan. Tele did not show any significant arrhythmias. 2D echo showed normal LV systolic function. No wall motion abnormalities. Plan for Lexiscan MPI as outpatient. Problems: MT GIANG APRN Dec 16, 2016 09:09 WATSON DE LA CRUZ MD Dec 16, 2016 14:56
[2016-12-16] MEDS ORDERED: METOPROLOL TART IMMED RELEASE 25 MG TABLET PO SCH (09:30)
[2016-12-16 10:56] VITALS: BP 142/82
[2016-12-16] MEDS ORDERED: CEFP200T PO (13:18)
[2016-12-16] MEDS ORDERED: METO25TA4 PO (13:19)
[2016-12-16] MEDS ORDERED: ENOXAPARIN 40 MG/0.4 ML DISP.SYRIN. SQ SCH (21:00)
--- NOTE | 2016-12-16 21:54 | DS ---
DATE OF DISCHARGE: 12/16/2016 DATE OF SERVICE: 12/16/2016 HOSPITAL COURSE: The patient is a 66-year-old male patient who was admitted with sore throat, fever, hacking cough, aches and pains and nausea and apparently was evaluated in the Emergency Room. He had a chest x-ray showed that he has mild patchy left lung airspace opacities likely atelectasis and infiltrate. He was admitted and was started on IV antibiotic in the form of Rocephin. He did display some arrhythmia yesterday, although the Cardiology team felt that he is mostly in sinus rhythm and they recommended to see him as an outpatient. His echocardiogram showed that his left ventricular systolic function was normal and ejection fraction estimated at 55-60%. There is normal left ventricular segmental wall motion. Left atrium is mildly dilated; however, there is no evidence of any significant pericardial effusion. They suggested outpatient nuclear stress test and risk factors reduction. They also recommended outpatient sleep study. PHYSICAL EXAMINATION: GENERAL: When I saw him today, he was sitting on the edge of the bed comfortably, in no apparent respiratory distress, slightly pale, no jaundice, cyanosis, or thyromegaly. No jugular venous distention. No limb edema. VITAL SIGNS: His heart rate was 87, blood pressure 142/82, temperature was 97.4, respiratory rate 20, and oxygen saturation was 94% on room air. HEAD, EYES, EARS, NOSE AND THROAT: Showed normocephalic, atraumatic. NECK: Supple. HEART: Showed normal first and second heart sounds with no gallop, rub, or murmur. CHEST: Clear to auscultation. No crepitation or rhonchi. ABDOMEN: Distended, soft, nontender. No guarding or rigidity. No organomegaly. Hernial orifices intact. Bowel sounds normal. NEUROLOGIC: He was awake, alert, responding appropriately. Cranial nerves intact. He moves extremities without difficulty, ambulates without assistance or assistive devices. His intake over the last 24 hours was 2500, output was 1500. LABORATORY AND DIAGNOSTIC DATA: His workup showed a white cell count of 13,000, hemoglobin 14.5, hematocrit 43, MCV 86, and platelet count 407,000. His chemistry showed a serum sodium of 134, potassium 4.2, chloride 98, bicarbonate 31, anion gap of 5, BUN 10, creatinine 0.9, estimated GFR was 84 mL per minute. Her glucose 130, calcium was 9.1. Total bilirubin, AST, ALT, alkaline phosphatase were normal. Total protein is 7.3, albumin 3.4. Urinalysis was unremarkable. His influenza A and B were negative. His chest x-ray showed that he has possible interval mild improvement, but persistent mild left basilar patchy infiltrate. DISCHARGE MEDICATIONS: He was discharged home to continue on following medications: Vantin 200 mg twice a day for 7 days, Metoprolol Tartrate 25 mg twice a day, amlodipine 10 mg once a day, losartan potassium 50 mg daily, losartan/hydrochlorothiazide 25 mg daily, sertraline 100 mg once a day, trifluoperazine 5 mg twice a day. FINAL DISCHARGE DIAGNOSES: 1. Community-acquired pneumonia, resolving. The patient is afebrile, hemodynamically stable with normal oxygen saturation on room air. 2. Hyponatremia, resolved. 3. Arrhythmias and chest pain. His echocardiogram revealed normal left ventricular systolic function and wall motion. 4. Hypertension, well controlled. 5. Morbid obesity, obstructive sleep apnea. The patient will have an event monitor and a nuclear stress test as an outpatient and also I recommended that his primary care physician should arrange for him to have a sleep study as an outpatient. JESSE PRESTON MD DR: JORDYN/jermaine JOB#: [id number] / [id number]
== END 2016-12-16 14:30 | disposition home or self-care (01) | DRG 871 ==
LOC: ER 08:48 → 1 SOUTH 10:49
PROVIDERS: ADMIT Family Medicine; ATTEND Family Medicine
DX: A41.9 Sepsis, unspecified organism (principal); J15.9 Unspecified bacterial pneumonia; J96.01 Acute respiratory failure with hypoxia; E87.1 Hypo-osmolality and hyponatremia; Z68.41 Body mass index [BMI] 40.0-44.9, adult; J98.11 Atelectasis; E66.01 Morbid (severe) obesity due to excess calories; R65.10 Systemic inflammatory response syndrome (SIRS) of non-infectious origin without acute organ dysfunction; G47.33 Obstructive sleep apnea (adult) (pediatric); I10 Essential (primary) hypertension; I49.9 Cardiac arrhythmia, unspecified; F32.9 Major depressive disorder, single episode, unspecified; Z80.42 Family history of malignant neoplasm of prostate; Z81.8 Family history of other mental and behavioral disorders
CPT/HCPCS: 36415; 71020; 80048; 80053; 80061; 81001; 85025; 87449; 87804; 90686; 90732; 93005; 93306; 94640; 96365; J0456; J0696; J1650; J7040; J7050; J7620; 99285-25; J7030

== ENCOUNTER → 2020-12-27 | Outpatient (CLI) | payer MEDICARE ==
[~2020-12-27] MED LIST: AMLO-187 PO; CARV3.1230 PO; CEFP200T PO; LOSA1TAB22 PO; LOSA50TA86 PO; METO25TA4 PO; SERT-269 PO; TRIF5TAB PO
--- NOTE | 2020-12-27 10:43 | RAD ---
EXAM: Chest, 2 views. HISTORY: Cough. COMPARISON: 12/15/2016 FINDINGS: 2 views of the chest are obtained. There is diffuse increased interstitial opacity likely d ue to infiltrate superimposed on chronic interstitial changes. There is no consolidation, pleural eff usion or pneumothorax. The heart is normal in size. IMPRESSION: Suspected diffuse interstitial infiltrate superimposed on chronic interstitial changes. Electronically signed by: Aggie Hills MD (12/27/2020 10:41 AM) [id number]
== END ==
LOC: RAD 10:28
PROVIDERS: ATTEND Physician Assistant
DX: R05.9 Cough, unspecified (principal)
CPT/HCPCS: 71046

== ENCOUNTER → 2021-01-09 | Outpatient (CLI) | payer MEDICARE ==
--- NOTE | 2021-01-09 17:34 | RAD ---
EXAM: PA and Lateral Views of the Chest DATE: 01/09/2021 2:26 PM INDICATION: Reason: FOLLOW UP PNEUMONIA / Spl. Instructions: / History: COMPARISON: 12/27/2020 FINDINGS: The heart is not enlarged. Mediastinal and hilar contours are normal. Heterogeneous patchy opacities in the mid and lower lungs bilaterally are similar to 12/27/2020 No pleural effusion or pneumothorax. IMPRESSION: Heterogeneous patchy opacities in the mid and lower lungs bilaterally are similar to 12/27/2020. Cristobal mmend continued radiographic follow-up to resolution, otherwise further evaluation with CT is recomme nded. Electronically signed by: Shabbir Wynne MD (01/09/2021 5:31 PM) [id number]
== END ==
LOC: RAD 14:13
PROVIDERS: ATTEND Physician Assistant
DX: R91.8 Other nonspecific abnormal finding of lung field (principal); J18.9 Pneumonia, unspecified organism
CPT/HCPCS: 71046

== ENCOUNTER → 2021-02-13 | Outpatient (CLI) | payer MEDICARE ==
--- NOTE | 2021-02-14 13:05 | RAD ---
XR CHEST 2V History: Reason: LLL pneumonia, hx. COVID / Spl. Instructions: / History: Comparison: January 09, 2021 Findings: Multifocal ill-defined patchy opacities bilaterally most prominent within the lung bases, left greate r than right. No pleural effusion. No pneumothorax. Normal heart size. Impression: 1. Multifocal ill-defined and patchy opacities bilaterally, similar compared to prior. Recommend CT to further evaluate given persistence of findings. Electronically signed by: Jerome Juarez DO (02/14/2021 1:03 PM) [facility]
== END ==
LOC: RAD 14:10
PROVIDERS: ATTEND Physician Assistant
DX: R91.8 Other nonspecific abnormal finding of lung field (principal); J18.9 Pneumonia, unspecified organism
CPT/HCPCS: 71046

== ENCOUNTER → 2021-03-08 | Outpatient (CLI) | payer MEDICARE ==
[~2021-03-08] MED LIST changes: +IOHEXOL 300 MG/ML 75 ML VIAL. IV ONE
[2021-03-08 14:02] LABS: GFR 73.7
--- NOTE | 2021-03-08 15:02 | RAD ---
EXAM: Chest CT without intravenous contrast. HISTORY: Pneumonia. TECHNIQUE: Computed tomographic images of the chest were obtained without contrast. Multiplanar refor matting was performed. *One or more of the following individualized dose reduction techniques were utilized for this examina tion: 1. Automated exposure control. 2. Adjustment of the mA and/or kV according to patient size. 3. Use of iterative reconstruction technique. COMPARISON: None. FINDINGS: The heart is normal in size. The aorta is normal in caliber. There is calcified atheroscler otic plaque involving the aorta and aortic arch great vessels. There is coronary artery calcification . There are enlarged mediastinal and hilar lymph nodes. For reference purposes, the largest right par atracheal lymph node measures 3.2 cm. The largest aortopulmonary window lymph node measures 2.5 cm. T here are partially calcified right hilar granulomas. There is multifocal peripheral and lower lobe predominant interstitial infiltrate superimposed on chr onic interstitial changes. There is mild emphysema. There is mild air trapping. There is no consolida tion or suspicious pulmonary nodule. There are small simple appearing hepatic cysts. There is no conv incing acute finding involving the upper abdomen. There is no acute or suspicious osseous finding. IMPRESSION: 1. Multifocal peripheral and lower lobe predominant interstitial infiltrate superimposed on chronic i nterstitial changes and emphysema. 2. Mediastinal and hilar lymphadenopathy. This may be reactive in etiology. Follow-up can be performe d to confirm resolution if there is concern for underlying neoplasm. Electronically signed by: Aggie Hills MD (03/08/2021 3:00 PM) [id number]
== END ==
LOC: CT 13:20
PROVIDERS: ATTEND Physician Assistant
DX: J43.9 Emphysema, unspecified (principal); R59.0 Localized enlarged lymph nodes; I70.0 Atherosclerosis of aorta; I25.10 Atherosclerotic heart disease of native coronary artery without angina pectoris; J84.10 Pulmonary fibrosis, unspecified; K76.89 Other specified diseases of liver
CPT/HCPCS: 36415; 71260; 82565; 84520; Q9967